=== PATIENT | female | born 1995 | race Caucasian/White ===

== ENCOUNTER 2024-08-25 07:41 | Emergency (ER) | payer OTHER | END 2024-08-25 08:20 | disposition home or self-care (01) | LOC: VM.ED 07:41 | DX: S61.012A Laceration without foreign body of left thumb without damage to nail, initial encounter (principal); Z88.2 Allergy status to sulfonamides; W26.8XXA Contact with other sharp object(s), not elsewhere classified, initial encounter | CPT/HCPCS: 12001; 99282; J2003 ==